=== PATIENT | male | born 1935 | race Caucasian/White ===

== ENCOUNTER 2017-10-15 14:46 | Outpatient (CLI) | payer MEDICARE ==
--- NOTE | 2017-10-15 19:03 | CT ---
CT BRAIN WITHOUT CONTRAST: 10/15/2017 FINDINGS: Diffuse atrophy is present with compensatory dilatation of the ventricles. There is no ventricular s hift. No intracranial bleeding, mass, or sign of acute stroke is found. No edema is seen. The calv arium is unremarkable in appearance. There is substantially more atrophy present today than was seen on a prior MRI of 02/17/2005. IMPRESSION: Very prominent atrophy with moderate compensatory dilatation of the ventricles. POS: HOME
--- NOTE | 2017-10-15 19:05 | CT ---
CT SINUSES: 10/15/2017 TECHNIQUE: Axial slices were acquired and then coronal and sagittal reconstructions were done. FINDINGS: The paranasal sinuses are clear. There is no air-fluid level or mucosal thickening in any of them. One of the maxillary teeth projects prominently into the floor of the left maxillary sinus, but there is no mucosal thickening here. No fractures are seen. The retroorbital areas are unremarkable. IMPRESSION: No acute sinus findings. POS: HOME
== END 2017-10-15 14:47 | disposition home or self-care (01) ==
LOC: BURCT 14:46
PROVIDERS: ATTEND Family Medicine
DX: J32.9 Chronic sinusitis, unspecified (principal); G93.89 Other specified disorders of brain; G31.9 Degenerative disease of nervous system, unspecified; R41.3 Other amnesia
CPT/HCPCS: 70450

== ENCOUNTER 2018-01-02 08:56 | Outpatient (CLI) | payer MEDICARE ==
--- NOTE | 2018-01-02 18:54 | CT ---
CT OF THE BRAIN WITHOUT CONTRAST 01/02/18 Comparison is made with a 10/15/17 study. Diffuse severe atrophy and moderate compensatory dilatation of the ventricles is present as before. T here is some deep white matter lucency consistent with chronic microvascular ischemia. There were no findings of acute stroke, mass or edema. No bleeding was seen. The calvarium appears normal. The visi ble paranasal sinuses are clear. IMPRESSION: Severe atrophy and ischemic change, but no acute findings. Exam little different than the October study. POS: HOME
== END 2018-01-02 08:57 | disposition home or self-care (01) ==
LOC: BURCT 08:56
PROVIDERS: ATTEND Family Medicine
DX: R41.82 Altered mental status, unspecified (principal); G31.9 Degenerative disease of nervous system, unspecified
CPT/HCPCS: 70450

== ENCOUNTER 2018-01-14 09:26 | Outpatient (CLI) | payer MEDICARE ==
--- NOTE | 2018-01-14 18:39 | RAD ---
CHEST TWO VIEWS: 01/14/2018 FINDINGS: The heart is normal in size. The mediastinum shows no widening or shift. There are no major lobar i nfiltrates or effusions. A rounded calcified granuloma is seen in the left costophrenic angle. The bony structures appear intact. IMPRESSION: No acute finding. POS: HOME
== END 2018-01-14 09:27 | disposition home or self-care (01) ==
LOC: BURRAD 09:26
PROVIDERS: ATTEND Family Medicine
DX: S20.212A Contusion of left front wall of thorax, initial encounter (principal); R06.02 Shortness of breath
CPT/HCPCS: 71046

== ENCOUNTER 2018-12-10 18:38 | Emergency (ER) | payer MEDICARE, OTHER ==
[2018-12-10 19:25] LABS: #Basophils 0.1 thou/uL (0.0-0.2); #Eosinphils 0.3 thou/uL (0.0-0.7); #Monocytes 0.7 thou/uL (0.11-0.59); #Neutrophils 5.6 thou/uL (1.40-6.50); %Basophils 0.8 % (0.0-1.0); %Eosinophils 3.7 % (0.0-10.0); %Lymphocytes 23.2 % (21.0-51.0); %Neutrophils 64.3 % (42.0-75.0); Hemoglobin 14.1 g/dL (14.0-18.0); Mean Corpuscular HGB CONC 34.1 g/dL (32.0-36.0); Mean Corpuscular Hemoglobin 31.6 pg (27.0-31.0); Mean Corpuscular Volume 92.7 fL (78.0-98.0); Mean Platelet Volume 5.6 fL (7.4-10.4); Platelet Count 207 thou/uL (130-400); RBC Distribution Width 11.5 % (11.5-14.5); Red Blood Cell (RBC) Count 4.46 mill/uL (4.70-6.10); White Blood Cell (WBC) Count 8.8 thou/uL (4.8-10.8)
[2018-12-10 19:38] LABS: Bilirubin Negative (Negative); Blood, Urine Negative (Negative); Clarity Clear (Clear); Glucose, Urine (Dipstick) 250 mg/dL (Negative); Leukocyte Negative (Negative); Nitrite Negative (Negative); Protein, Urine (Dipstick) Negative (Neg-Trace); Urobilinogen 0.2 mg/dL (Less than 2)
[2018-12-10 19:40] LABS: ALT (SGPT) 27 U/L (8-55); AST (SGOT) 25 U/L (5-34); Albumin 4.3 g/dL (3.4-4.8); Alkaline Phosphatase 61 U/L (40-150); Anion Gap 15 mmol/L (10-20); BUN (Urea Nitrogen) 21 mg/dL (8.4-25.7); Bilirubin, Total 0.8 mg/dL (0.2-1.2); CK (CPK) 65 U/L (30-200); Calc. Creatinine Clearance 0 mL/min (70-130); Calcium 9.7 mg/dL (7.8-10.44); Carbon Dioxide 25 mmol/L (23-31); Chloride 102 mmol/L (98-107); Estimated GFR-MDRD 54; Globulin 2.7 g/dL (2.4-3.5); Glucose 209 mg/dL (83-110); Lipase 36 U/L (8-78); Potassium 4.1 mmol/L (3.5-5.1); Sodium 138 mmol/L (136-145)
--- NOTE | 2018-12-10 20:39 | RAD ---
PORTABLE CHEST: 12/10/18 An AP portable film at 1927 is compared with a 01/15/[address] [facility]. The heart is normal in size. There is no mediastinal widening or shift. The right paratracheal densit y is due to tortuous great vessels and rotation of the patient. There is no pneumothorax, visible fra cture, or other acute traumatic change. IMPRESSION: Stable exam showing no acute finding. POS: HOME
--- NOTE | 2018-12-10 20:59 | CT ---
CT BRAIN WITHOUT CONTRAST: 12/10/2018 COMPARISON: 01/15/2018 FINDINGS: No intracranial bleeding or extraaxial hematoma is seen. Diffuse moderately severe atrophy is presen t with moderate compensatory dilatation of the ventricles. The degree of atrophy may have worsened s lightly over the interval. Mild chronic ischemic changes are seen in the deep white matter. There i s no evidence of acute stroke, mass, or edema. The skull appears intact. The sphenoid sinus and mas toid air cells are clear. IMPRESSION: Atrophy, as noted. No acute intracranial findings. POS: HOME
== END 2018-12-10 20:23 | disposition home or self-care (01) ==
LOC: BURERS 18:38
DX: R53.1 Weakness (principal); G30.9 Alzheimer's disease, unspecified; E11.9 Type 2 diabetes mellitus without complications; Z79.899 Other long term (current) drug therapy; Z79.84 Long term (current) use of oral hypoglycemic drugs; W19.XXXA Unspecified fall, initial encounter
CPT/HCPCS: 70450; 71045; 80053; 81003; 82550; 83605; 83690; 84484; 85025; 93005; 96360

== ENCOUNTER 2019-01-29 12:53 | Emergency (ER) | payer MEDICARE, OTHER ==
[2019-01-29] MEDS ORDERED: Adacel (T-DAP) 0.5 ML SYRINGE ONE (13:24)
[2019-01-29 13:56] LABS: #Basophils 0.1 thou/uL (0.0-0.2); #Eosinphils 0.3 thou/uL (0.0-0.7); #Monocytes 0.8 thou/uL (0.11-0.59); #Neutrophils 7.4 thou/uL (1.40-6.50); %Basophils 0.6 % (0.0-1.0); %Eosinophils 2.9 % (0.0-10.0); %Lymphocytes 18.8 % (21.0-51.0); %Monocytes 7.7 % (0.0-10.0); %Neutrophils 69.9 % (42.0-75.0); Hemoglobin 14.1 g/dL (14.0-18.0); Mean Corpuscular HGB CONC 34.2 g/dL (32.0-36.0); Mean Corpuscular Hemoglobin 31.1 pg (27.0-31.0); Mean Corpuscular Volume 90.8 fL (78.0-98.0); Mean Platelet Volume 5.5 fL (7.4-10.4); Platelet Count 200 thou/uL (130-400); RBC Distribution Width 11.2 % (11.5-14.5); Red Blood Cell (RBC) Count 4.53 mill/uL (4.70-6.10); White Blood Cell (WBC) Count 10.5 thou/uL (4.8-10.8)
[2019-01-29 14:09] LABS: Bilirubin Negative (Negative); Blood, Urine Negative (Negative); Clarity Clear (Clear); Glucose, Urine (Dipstick) 500 mg/dL (Negative); Leukocyte Negative (Negative); Nitrite Negative (Negative); Protein, Urine (Dipstick) Negative (Neg-Trace)
[2019-01-29 14:12] LABS: ALT (SGPT) 23 U/L (8-55); AST (SGOT) 26 U/L (5-34); Albumin 4.3 g/dL (3.4-4.8); Alkaline Phosphatase 67 U/L (40-150); Anion Gap 16 mmol/L (10-20); BUN (Urea Nitrogen) 22 mg/dL (8.4-25.7); Bilirubin, Total 0.7 mg/dL (0.2-1.2); Calc. Creatinine Clearance 0 mL/min (70-130); Calcium 9.6 mg/dL (7.8-10.44); Carbon Dioxide 22 mmol/L (23-31); Chloride 105 mmol/L (98-107); Estimated GFR-MDRD 58; Globulin 2.6 g/dL (2.4-3.5); Glucose 268 mg/dL (83-110); Potassium 4.7 mmol/L (3.5-5.1); Protein, Total 6.9 g/dL (5.8-8.1); Sodium 138 mmol/L (136-145)
--- NOTE | 2019-01-29 17:07 | CT ---
CT OF THE BRAIN WITHOUT CONTRAST 01/29/19 Comparison is made with a 12/10/18 study done at [facility]. Diffuse severe atrophy with moderate compensatory dilatation of the ventricles is seen as usual. No i ntracranial bleeding or extra-axial hematoma was apparent. There is no sign of mass, acute stroke, or edema. The skull appears intact. The visible paranasal sinuses and mastoid air cells are clear. IMPRESSION: No acute intracranial finding. POS: HOME
--- NOTE | 2019-01-29 17:13 | CT ---
CT OF THE CERVICAL SPINE WITHOUT CONTRAST: 01/29/[address] of the cervical spine was performed following trauma. Axial slices were acquired, followed by coronal and sagittal reconstructions. No fracture, dislocation, or acute bony change was seen. The C1 to dens distance is not widened. The soft tissues are normal in thickness. Disc space narrowing is present at C5-C6 and C6-C7. The finding s by level follow: C1-C2: No acute findings. Some motion artifact degrades the images. C2-C3: No acute findings. C3-C4: Moderate right foraminal narrowing and mild to moderate left foraminal narrowing due to osteop hytes. Right facet arthritis quite prominent. C4-C5: Severe right facet arthritis. Mild bilateral foraminal narrowing. C5-C6: Moderate bilateral foraminal narrowing. Prominent posterior disc osteophyte complex that narro ws the AP diameter of the canal to about 8 to 9 mm. Degenerated disc at this level. C6-C7: Moderate bilateral foraminal narrowing due to osteophytes. Prominent facet arthritis. C7-T1: No acute findings. There is a very minor anterolisthesis of C7 on T1 that is probably due to t he facet changes. T1-T2: No acute findings. Lung apices are clear. No pathology in the soft tissues of the neck was appreciated. IMPRESSION: Severe degenerative changes as noted. No acute traumatic findings. POS: HOME
--- NOTE | 2019-01-29 17:23 | RAD ---
LEFT WRIST THREE VIEWS: 01/29/19 An opaque metallic foreign body is seen in the soft tissues just lateral to the scaphoid. No actual f racture was seen. All bones appears intact at this time. IMPRESSION: Foreign body is noted. POS: HOME
--- NOTE | 2019-01-29 17:28 | RAD ---
PELVIS ONE VIEW: 01/29/19 A single view is submitted and the patient is obliqued slightly. It is difficult to assess the left p ubic ring and as such, I cannot rule out any fracture here. There is no dislocation of either hip and each hip joint is normal in width. No gross hip fractures were apparent. The SI joints are symmetri jesus. Arterial calcifications are present. IMPRESSION: While there was no gross fracture, the left pubic ring is seen incompletely and there are some irregu larities of it. If the patient were to hurt in this location, then I would advise getting additional views to clear this area better. Code T POS: HOME
== END 2019-01-29 14:25 | disposition home or self-care (01) ==
LOC: BURERS 12:53
DX: S50.311A Abrasion of right elbow, initial encounter (principal); S50.312A Abrasion of left elbow, initial encounter; S60.812A Abrasion of left wrist, initial encounter; S80.212A Abrasion, left knee, initial encounter; S80.211A Abrasion, right knee, initial encounter; S80.811A Abrasion, right lower leg, initial encounter; R11.2 Nausea with vomiting, unspecified; G30.9 Alzheimer's disease, unspecified; F02.80 Dementia in other diseases classified elsewhere, unspecified severity, without behavioral disturbance, psychotic disturbance, mood disturbance, and anxiety; E11.9 Type 2 diabetes mellitus without complications; N40.0 Benign prostatic hyperplasia without lower urinary tract symptoms; Z79.899 Other long term (current) drug therapy; Z79.84 Long term (current) use of oral hypoglycemic drugs; Z23 Encounter for immunization; W18.30XA Fall on same level, unspecified, initial encounter
CPT/HCPCS: 36415; 70450; 72125; 72170; 80053; 81003; 84443; 85025; 90471; 90715; 94760